=== PATIENT | female | born 1960 | race Caucasian/White ===

== ENCOUNTER 2024-02-25 06:00 | Day surgery (SDC) | payer MEDICARE ==
[2024-02-25] MEDS ORDERED: fentaNYL 100 MCG/2 ML SDV IV ONE (06:01)
[2024-02-25] MEDS ORDERED: Midazolam 1 MG/ML 2 ML SDV IV ONE (06:01)
[2024-02-25] MEDS ORDERED: fentaNYL 100 MCG/2 ML SDV ONE (06:08)
[2024-02-25] MEDS ORDERED: Midazolam 1 MG/ML 2 ML SDV ONE (06:08)
[2024-02-25] MEDS: Dextrose 5%-0.45% NaCl 1,000 ML IV SCH (06:30)
[2024-02-25] MEDS: fentaNYL 100 MCG/2 ML SDV IV ONE ×3 (06:46→07:01)
[2024-02-25] MEDS: Midazolam 1 MG/ML 2 ML SDV IV ONE ×6 (06:47→06:59)
[2024-02-25 08:38] VITALS: BP 111/68; PULSE 64
== END 2024-02-25 09:00 | disposition home or self-care (01) ==
LOC: DL.ENDO 06:00
PROVIDERS: ATTEND Internal Medicine Gastroenterology
DX: Z12.11 Encounter for screening for malignant neoplasm of colon (principal); K62.1 Rectal polyp; E78.5 Hyperlipidemia, unspecified
CPT/HCPCS: 45385; 88305; J2250; J3010; J7799